=== PATIENT | male | born 1960 | race Caucasian/White ===

== ENCOUNTER 2023-07-19 10:43 | Day surgery (SDC) | payer OTHER, MEDICARE ==
[~2023-07-19 10:43] MED LIST: Sodium Chloride 0.9% 10 ML Syringe FLUSH PRN; Sodium Chloride 0.9% 10 ML Syringe FLUSH SCH
[2023-07-19] MEDS: Lactated Ringers 1,000 ML IV SCH (11:15)
[2023-07-19] MEDS ORDERED: Lidocaine 1% 6 ML ONE (11:27)
[2023-07-19] MEDS ORDERED: Propofol 200 MG/20 ML SDV ONE (11:27)
[2023-07-19] MEDS ORDERED: fentaNYL 100 MCG/2 ML SDV ONE (11:28)
[2023-07-19] MEDS ORDERED: Lactated Ringers 1,000 ML ONE (13:06)
== END 2023-07-19 14:20 | disposition home or self-care (01) ==
LOC: JD.SDS 10:43
PROVIDERS: ATTEND Surgery
DX: Z12.11 Encounter for screening for malignant neoplasm of colon (principal); K29.50 Unspecified chronic gastritis without bleeding; K31.7 Polyp of stomach and duodenum; K63.5 Polyp of colon; J44.9 Chronic obstructive pulmonary disease, unspecified; E78.5 Hyperlipidemia, unspecified; I10 Essential (primary) hypertension; E11.9 Type 2 diabetes mellitus without complications; K21.9 Gastro-esophageal reflux disease without esophagitis; G47.00 Insomnia, unspecified; G47.33 Obstructive sleep apnea (adult) (pediatric); Z79.899 Other long term (current) drug therapy; Z88.0 Allergy status to penicillin; Z88.1 Allergy status to other antibiotic agents; Z87.11 Personal history of peptic ulcer disease
CPT/HCPCS: 45380; J2704; J3010; J7120; 00813; 88305; 88342; J3490

== ENCOUNTER 2024-02-16 13:18 | Emergency (ER) | payer MEDICARE, OTHER ==
[2024-02-16] MEDS ORDERED: Sodium Chloride 0.9% 10 ML Syringe FLUSH PRN (14:22)
[2024-02-16 14:55] LABS: BASOPHILS ABSOLUTE AUTO 0.1 K/mm3 (0.0-0.2); BASOPHILS PERCENT AUTO 0.8 % (0.0-1.0); EOSINOPHILS ABSOLUTE AUTO 0.1 K/mm3 (0.0-0.4); EOSINOPHILS PERCENT AUTO 1.5 % (0.0-6.0); HEMATOCRIT 46.7 % (42.0-52.0); HEMOGLOBIN 16.3 gm/dl (14.0-18.0); IMMATURE GRAN ABSOLUTE AUTO 0.04 K/mm3 (0.00-0.05); IMMATURE GRAN PERCENT AUTO 0.4 % (0.0-0.4); LYMPHOCYTES ABSOLUTE AUTO 2.8 K/mm3 (1.0-4.8); LYMPHOCYTES PERCENT AUTO 30.3 % (24.0-44.0); MEAN CORPUSCULAR HEMOGLOBIN 32.7 pg (28.0-32.0); MEAN CORPUSCULAR HGB CONC 34.9 g/dl (32.0-36.0); MEAN CORPUSCULAR VOLUME 93.8 fl (83.0-99.0); MEAN PLATELET VOLUME 9.8 fl (9.4-12.4); MONOCYTES ABSOLUTE AUTO 0.8 K/mm3 (0.0-0.8); MONOCYTES PERCENT AUTO 8.4 % (0.0-8.0); NEUTROPHILS ABSOLUTE AUTO 5.3 K/mm3 (1.8-7.7); NEUTROPHILS PERCENT AUTO 58.6 % (41.0-71.0); PLATELET COUNT,PLT 221 K/mm3 (150-400); RED BLOOD CELL COUNT 4.98 M/mm3 (4.52-5.90); WHITE BLOOD CELL COUNT,WBC 9.09 K/mm3 (3.9-11.3)
[2024-02-16] MEDS: Ondansetron 4 MG/2 ML SDV IVPUSH ONE (15:17)
[2024-02-16] MEDS: Meclizine 25 MG Tab PO ONE (15:17)
[2024-02-16] MEDS: Sodium Chloride 0.9% 10 ML Syringe FLUSH ONE ×2 (15:17→15:20)
[2024-02-16] MEDS ORDERED: Iopamidol 755 Mg/ML 100 ML Bottle IVPUSH ONE (15:18)
[2024-02-16] MEDS: Sodium Chloride 0.9% 100 ML IV SCH (15:20)
[2024-02-16] MEDS: Iopamidol 755 Mg/ML 100 ML Bottle IVPUSH ONE (15:20)
[2024-02-16 15:22] LABS: A/G RATIO 1.1 (1-2); ALBUMIN 4.2 g/dl (3.4-5.0); BILIRUBIN TOTAL 0.5 mg/dL (0.2-1.0); CALCIUM 9.2 mg/dL (8.5-10.1); EST CRCL DRUG DOSING (CG) 85.45 mL/min; MAGNESIUM 1.5 mg/dL (1.8-2.4); PROTEIN TOTAL,TP 7.9 g/dl (6.4-8.2)
[2024-02-16] MEDS ORDERED: Sodium Chloride 0.9% 100 ML IV SCH (15:30)
[2024-02-16] MEDS: Sodium Chloride 0.9% 1,000 ML IV ONE (15:57)
== END 2024-02-16 17:30 | disposition home or self-care (01) ==
LOC: JD.ED 13:18
DX: R42 Dizziness and giddiness (principal); J44.9 Chronic obstructive pulmonary disease, unspecified; E11.9 Type 2 diabetes mellitus without complications; Z88.1 Allergy status to other antibiotic agents; Z90.49 Acquired absence of other specified parts of digestive tract
CPT/HCPCS: 36415; 70450; 70496; 70498; 80053; 83735; 84484; 85025; 93005; 96360; 99284; J3490; J7030; Q9967; A9270-GY

== ENCOUNTER 2024-08-14 07:01 | Day surgery (SDC) | payer MEDICARE, OTHER ==
[2024-08-14] MEDS ORDERED: Propofol 200 MG/20 ML SDV ONE (07:29)
[2024-08-14] MEDS ORDERED: Lidocaine 1% 6 ML ONE (07:29)
[2024-08-14] MEDS: Lactated Ringers 1,000 ML IV SCH (07:30)
== END 2024-08-14 09:30 | disposition home or self-care (01) ==
LOC: JD.SDS 07:01
PROVIDERS: ATTEND Surgery
DX: K21.00 Gastro-esophageal reflux disease with esophagitis, without bleeding (principal); K22.70 Barrett's esophagus without dysplasia; K44.9 Diaphragmatic hernia without obstruction or gangrene; I10 Essential (primary) hypertension; J44.9 Chronic obstructive pulmonary disease, unspecified; E11.42 Type 2 diabetes mellitus with diabetic polyneuropathy; Z79.4 Long term (current) use of insulin; Z79.899 Other long term (current) drug therapy
CPT/HCPCS: J2003; J2704; J7120